=== PATIENT | female | born 1990 | race Caucasian/White ===

== ENCOUNTER 2021-11-17 09:20 | Emergency (ER) | payer OTHER ==
[~2021-11-17] VITALS: Ht 170.2 cm; Wt 71.0 kg
[2021-11-17 09:49] VITALS: BP 120/83
[2021-11-17] MEDS ORDERED: AMOX1TAB61 PO (09:55)
--- NOTE | 2021-11-17 09:55 | PHYS DOC ---
General Adult EDM: Chief Complaint: CONGESTION HPI: HPI: 31-year-old female presents with nasal congestion for 2 weeks. She is 37 weeks and having no difficulties with the baby. Over the last few days, she has had significant maxillary sinus pressure pain. She is concerned about infection. [place] because she has not had a Covid test this week. Patient does not have a significant history of sinusitis. She has been trying [id number] medications without relief. Denies fever or chills. She has no other complaints at this time. Review of Systems: Review of Systems: Constitutional: Denies fever or chills Eyes: Denies change in visual acuity HENT: Left maxillary tenderness Respiratory: Denies cough or shortness of breath Cardiovascular: Denies chest pain or edema GI: Denies abdominal pain, nausea, vomiting, bloody stools or diarrhea : Denies dysuria Musculoskeletal: Denies back pain or joint pain Integument: Denies rash Neurologic: Denies headache, focal weakness or sensory changes Endocrine: Denies polyuria or polydipsia Lymphatic: Denies swollen glands Psychiatric: Denies depression or anxiety Allergies: Allergies: Allergies Coded Allergies Type Severity Reaction Last Updated Verified No Known Drug Allergies 11/17/21 No Physical Exam: PE: Constitutional: Well developed, well nourished, no acute distress, non-toxic appearance. [] HENT: Normocephalic, atraumatic, bilateral external ears normal, oropharynx moist, no oral exudates, nose normal. Tenderness over the left maxillary sinus. [] Eyes: PERRLA, EOMI, conjunctiva normal, no discharge. [] Neck: Normal range of motion, no tenderness, supple, no stridor. [] Cardiovascular:Heart rate regular rhythm, no murmur [] Lungs & Thorax: Bilateral breath sounds clear to auscultation [] Abdomen: Bowel sounds normal, gravid uterus, no masses, no pulsatile masses. [] Skin: Warm, dry, no erythema, no rash. [] Back: No tenderness, no CVA tenderness. [] Extremities: No tenderness, no cyanosis, no clubbing, ROM intact, no edema. [] Neurologic: Alert and oriented X 3, normal motor function, normal sensory function, no focal deficits noted. [] Psychologic: Affect normal, judgement normal, mood normal. [] EKG: EKG: [] Radiology/Procedures: Radiology/Procedures: [] Heart Score: C/O Chest Pain: N/A Risk Factors: Risk Factors: DM, Current or recent (<one month) smoker, HTN, HLP, family history of CAD, obesity. Risk Scores: Score 0 - 3: 2.5% MACE over next 6 weeks - Discharge Home Score 4 - 6: 20.3% MACE over next 6 weeks - Admit for Clinical Observation Score 7 - 10: 72.7% MACE over next 6 weeks - Early Invasive Strategies Course & Med Decision Making: Course & Med Decision Making Pertinent Labs and Imaging studies reviewed. (See chart for details) The patient appears to have bacterial sinusitis. I will treat with Augmentin for 7 days. She is stable for discharge at this time. [] Dragon Disclaimer: Dragon Disclaimer: This electronic medical record was generated, in whole or in part, using a voice recognition dictation system. Departure Departure: Impression: Primary Impression: Bacterial sinusitis Disposition: HOME / SELF CARE / HOMELESS Condition: STABLE Referrals: HORTENSIA SALCIDO DO (PCP) Patient Instructions: Sinusitis, Ssee-md-Lkuf Scripts Amoxicillin/Potassium Clav (AUGMENTIN [id number] TABLET) 1 Each Tablet 1 TAB PO BID for sinusitis for 7 Days, #14 TAB 0 Refills Prov: CEE PINEDO DO 11/17/21 CEE PINEDO DO Nov 17, 2021 09:55
== END 2021-11-17 10:07 | disposition home or self-care (01) ==
LOC: ER 09:20
DX: O99.513 Diseases of the respiratory system complicating pregnancy, third trimester (principal); J32.9 Chronic sinusitis, unspecified; B96.89 Other specified bacterial agents as the cause of diseases classified elsewhere; Z3A.37 37 weeks gestation of pregnancy
CPT/HCPCS: 99283